=== PATIENT | female | born 1965 | race Two or more races ===

== ENCOUNTER 2025-04-01 10:35 | Emergency (ER) | payer OTHER ==
[~2025-04-01] VITALS: Ht 147.3 cm; Wt 77.1 kg
[2025-04-01 12:39] VITALS: BP 135/87; TEMP 98.5; O2SAT 99
== END 2025-04-01 12:39 | disposition home or self-care (01) ==
LOC: ER 10:47
DX: M79.661 Pain in right lower leg (principal); I11.9 Hypertensive heart disease without heart failure; K21.9 Gastro-esophageal reflux disease without esophagitis; Z96.651 Presence of right artificial knee joint
CPT/HCPCS: 93971-TC